=== PATIENT | female | born 1960 | race Caucasian/White ===

== ENCOUNTER → 2018-08-20 | Outpatient (CLI) | payer MEDICARE ==
[~2018-08-20] MED LIST: ALBU18HF INH; ALPR-475 PO; ASPI-621 PO; ATEN25TA PO; BUPIVACAINE/PF 0.5% ONE; CLON0.1T PO; DIAZ5TAB PO; HYDR12.58 PO; IBUP-1222 PO; LIDOCAINE-MPF 1%, 5ML ONE; LISI40TA PO; TRIAMCINOLONE ACETONIDE 40 MG/ML, 1ML ONE
== END | disposition home or self-care (01) ==
LOC: RAD 13:28
PROVIDERS: ATTEND Orthopaedic Surgery
DX: M19.071 Primary osteoarthritis, right ankle and foot (principal)
CPT/HCPCS: 20605; 77002; J3301; J3490

== ENCOUNTER 2019-02-25 12:22 | Outpatient (CLI) | payer MEDICARE ==
[~2019-02-25 12:22] MED LIST changes: -ASPI-621 PO; +ASPI81TA45 PO; -BUPIVACAINE/PF 0.5% ONE; -CLON0.1T PO; +CLON0.1T22 PO; -HYDR12.58 PO; +HYDROCHLOROTH12.5 MG PO; -LIDOCAINE-MPF 1%, 5ML ONE; -TRIAMCINOLONE ACETONIDE 40 MG/ML, 1ML ONE
[2019-02-25] MEDS ORDERED: TRIAMCINOLONE ACETONIDE 40 MG/ML, 1ML ONE (12:45)
[2019-02-25] MEDS ORDERED: ROPivacaine/PF 0.2%, 10 ML ONE (12:46)
[2019-02-25] MEDS ORDERED: LIDOCAINE-MPF 1%, 5ML ONE (12:46)
== END 2019-02-25 23:59 | disposition home or self-care (01) ==
LOC: RAD 12:22
PROVIDERS: ATTEND Orthopaedic Surgery
DX: M12.871 Other specific arthropathies, not elsewhere classified, right ankle and foot (principal); M25.571 Pain in right ankle and joints of right foot
CPT/HCPCS: 20610; 77002; J2795; J3301

== ENCOUNTER 2020-02-29 12:20 | Outpatient (CLI) | payer MEDICARE ==
[~2020-02-29 12:20] MED LIST changes: -ALPR-475 PO; +ALPR0.5T7 PO
[2020-02-29] MEDS ORDERED: TRIAMCINOLONE ACETONIDE 40 MG/ML, 1ML ONE (13:04)
[2020-02-29] MEDS ORDERED: LIDOCAINE-MPF 1%, 5ML ONE ×2 (13:04→13:05)
[2020-02-29] MEDS ORDERED: ROPivacaine/PF 0.2%, 10 ML ONE (13:04)
== END 2020-02-29 23:59 | disposition home or self-care (01) ==
LOC: RAD 12:20
PROVIDERS: ATTEND Orthopaedic Surgery
DX: M12.871 Other specific arthropathies, not elsewhere classified, right ankle and foot (principal); M72.2 Plantar fascial fibromatosis
CPT/HCPCS: 20605; 77002; J2795; J3301

== ENCOUNTER 2020-07-07 12:47 | Outpatient (CLI) | payer MEDICARE ==
[2020-07-07] MEDS ORDERED: TRIAMCINOLONE ACETONIDE 40 MG/ML, 1ML ONE (12:53)
[2020-07-07] MEDS ORDERED: ROPivacaine/PF 0.2%, 10 ML ONE (12:53)
[2020-07-07] MEDS ORDERED: LIDOCAINE 1%, 10ML ONE (12:54)
== END 2020-07-07 23:59 | disposition home or self-care (01) ==
LOC: RAD 12:47
PROVIDERS: ATTEND Orthopaedic Surgery
DX: M79.671 Pain in right foot (principal); M19.071 Primary osteoarthritis, right ankle and foot
CPT/HCPCS: 20605; 77002; J2795; J3301